=== PATIENT | female | born 1995 | race Caucasian/White ===

== ENCOUNTER 2018-03-21 16:38 | Outpatient (CLI) | payer OTHER | END 2018-03-21 18:03 | disposition home or self-care (01) | LOC: NST 16:38 | DX: Z34.03 Encounter for supervision of normal first pregnancy, third trimester (principal) ==

== ENCOUNTER 2018-04-02 01:31 | Outpatient (CLI) | payer OTHER ==
[2018-04-02] MEDS ORDERED: FOLIC ACID0.4 MG PO (01:48)
[2018-04-02] MEDS ORDERED: PRENATAL GUMMI1 EACH PO (01:49)
[2018-04-02] MEDS ORDERED: IRON325 MG PO (01:50)
== END 2018-04-02 09:43 | disposition home or self-care (01) ==
LOC: OBS/DEL 01:31
DX: O47.1 False labor at or after 37 completed weeks of gestation (principal); Z34.03 Encounter for supervision of normal first pregnancy, third trimester

== ENCOUNTER 2018-04-07 07:29 | Inpatient (IN) | payer OTHER ==
[~2018-04-07] VITALS: Ht 152.4 cm; Wt 124.0 kg
[~2018-04-07 07:29] MED LIST: FOLIC ACID0.4 MG PO; IRON325 MG PO; PRENATAL GUMMI1 EACH PO
== END 2018-04-09 12:37 | disposition home or self-care (01) | DRG 807 ==
LOC: OBS/DEL 07:29 → LDR 07:38 → OBS/DEL 07:38 → OB/GYN 16:20
PROC: 10E0XZZ Delivery of Products of Conception, External Approach (ICD-10-PCS; principal; 2018-04-07)
PROC: 0HQ9XZZ Repair Perineum Skin, External Approach (ICD-10-PCS; 2018-04-07)
PROC: 3E033VJ Introduction of Other Hormone into Peripheral Vein, Percutaneous Approach (ICD-10-PCS; 2018-04-07)
PROC: 4A1HXCZ Monitoring of Products of Conception, Cardiac Rate, External Approach (ICD-10-PCS; 2018-04-07)
DX: O70.0 First degree perineal laceration during delivery (principal); Z37.0 Single live birth; Z3A.39 39 weeks gestation of pregnancy

== ENCOUNTER 2023-05-09 11:05 | Outpatient (CLI) | payer OTHER | END 2023-05-09 11:07 | disposition home or self-care (01) | LOC: PRENATAL 11:05 | PROVIDERS: ATTEND Obstetrics & Gynecology Maternal & Fetal Medicine | DX: O35.3XX0 Maternal care for (suspected) damage to fetus from viral disease in mother, not applicable or unspecified (principal); O44.00 Complete placenta previa NOS or without hemorrhage, unspecified trimester; Z3A.22 22 weeks gestation of pregnancy ==

== ENCOUNTER 2023-05-17 18:41 | Outpatient (CLI) | payer OTHER ==
[2023-05-17 20:01] LABS: HEMATOCRIT 31.1 % (36.0-45.00); HEMOGLOBIN 10.8 g/dL (12.0-15.00); MEAN CELL VOLUME 91.4 fL (80.00-100.00); MEAN CORPUSCULAR HEMOGLOBIN 31.8 pg (27.00-32.0); MEAN CORPUSCULAR HGB CONC 34.9 g/dl (32.0-36.0); PLATELET COUNT 235 K/uL (150-450); RED CELL DISTRIBUTION WIDTH 12.9 % (11.5-14.5)
== END 2023-05-18 11:07 | disposition home or self-care (01) ==
LOC: OBS/DEL 18:41
PROVIDERS: ATTEND Obstetrics & Gynecology
DX: O26.892 Other specified pregnancy related conditions, second trimester (principal); R10.11 Right upper quadrant pain; Z3A.27 27 weeks gestation of pregnancy

== ENCOUNTER 2023-07-07 17:35 | Inpatient (IN) | payer OTHER ==
[~2023-07-07] VITALS: Ht 152.4 cm; Wt 54.9 kg
[2023-07-07 18:51] LABS: HEMATOCRIT 34.5 % (36.0-45.00); MEAN CELL VOLUME 91.4 fL (80.00-100.00); MEAN CORPUSCULAR HEMOGLOBIN 31.8 pg (27.00-32.0); MEAN CORPUSCULAR HGB CONC 34.9 g/dl (32.0-36.0); PLATELET COUNT 239 K/uL (150-450); RED BLOOD COUNT 3.78 M/uL (4.00-6.00)
[2023-07-07 18:58] LABS: PH,URINE 5.5 (5.0-8.0); URINE APPEARANCE Clear; URINE BILIRRUBIN Negative (NEGATIVE); URINE BLOOD Negative; URINE COLOR Yellow; URINE GLUCOSE Negative (NEGATIVE); URINE LEUKOCYTE Negative; URINE NITRATE Negative; URINE PROTEIN Negative (NEGATIVE)
[2023-07-07 19:02] LABS: URINE BACTERIA 103.2 uL (0.0-1933); URINE EPITHELIAL CELLS 9.7 uL (0.0-38.8); URINE WBC 8.9 uL (0.0-23.2)
[2023-07-07 19:05] LABS: URINE RBC 1.5 uL (0.0-20.8)
[2023-07-07 19:10] LABS: ALBUMIN 2.8 gm/dL (3.4-5.0); BILIRUBIN TOTAL 0.36 mg/dL (0.3-1.2); CALCIUM 8.7 mg/dL (8.5-10.1); CREATININE SERUM 0.51 mg/dL (0.55-1.02); GFR 144.65; GLOBULINA 3.7 G/DL (2.4-3.5); POTASSIUM 3.16 mEq/L (3.5-5.1); TOTAL PROTEIN 6.5 gm/dL (6.4-8.2)
== END 2023-07-08 12:08 | disposition home or self-care (01) | DRG 833 ==
LOC: OBS/DEL 17:35 → LDR 18:42
PROVIDERS: ADMIT Obstetrics & Gynecology; ATTEND Obstetrics & Gynecology
PROC: 4A1HXCZ Monitoring of Products of Conception, Cardiac Rate, External Approach (ICD-10-PCS; principal; 2023-07-07)
DX: O60.03 Preterm labor without delivery, third trimester (principal); Z3A.31 31 weeks gestation of pregnancy; Z20.822 Contact with and (suspected) exposure to COVID-19

== ENCOUNTER 2023-07-09 16:30 | Outpatient (CLI) | payer OTHER ==
[~2023-07-09] VITALS: Ht 152.4 cm; Wt 54.9 kg
== END 2023-07-10 14:30 | disposition home or self-care (01) ==
LOC: OBS/DEL 16:30
PROVIDERS: ATTEND Obstetrics & Gynecology
DX: O26.93 Pregnancy related conditions, unspecified, third trimester (principal); O60.03 Preterm labor without delivery, third trimester; Z3A.31 31 weeks gestation of pregnancy

== ENCOUNTER 2023-08-08 13:05 | Outpatient (CLI) | payer OTHER | END 2023-08-08 13:06 | disposition home or self-care (01) | LOC: PRENATAL 13:05 | PROVIDERS: ATTEND Obstetrics & Gynecology Maternal & Fetal Medicine | DX: O26.849 Uterine size-date discrepancy, unspecified trimester (principal); O36.8199 Decreased fetal movements, unspecified trimester, other fetus; Z3A.35 35 weeks gestation of pregnancy ==

== ENCOUNTER 2023-08-22 10:23 | Inpatient (IN) | payer OTHER ==
[~2023-08-22] VITALS: Ht 152.4 cm; Wt 59.4 kg
[2023-08-22] MEDS ORDERED: RINGERS SOLUTION,LACTATED 1,000 ML IV SCH ×2 (11:15)
[2023-08-22 15:20] LABS: PH,URINE 7.5 (5.0-8.0); URINE APPEARANCE Clear; URINE BILIRRUBIN Negative (NEGATIVE); URINE BLOOD Negative; URINE COLOR Yellow; URINE GLUCOSE Negative (NEGATIVE); URINE LEUKOCYTE Negative; URINE NITRATE Negative; URINE PROTEIN Negative (NEGATIVE)
[2023-08-22 15:23] LABS: URINE BACTERIA 1326.7 uL (0.0-1933); URINE EPITHELIAL CELLS 20.2 uL (0.0-38.8); URINE RBC 2.8 uL (0.0-20.8); URINE WBC 3.7 uL (0.0-23.2)
[2023-08-22 15:25] LABS: HEMATOCRIT 32.9 % (36.0-45.00); HEMOGLOBIN 11.6 g/dL (12.0-15.00); MEAN CELL VOLUME 91.2 fL (80.00-100.00); MEAN CORPUSCULAR HEMOGLOBIN 32.1 pg (27.00-32.0); MEAN CORPUSCULAR HGB CONC 35.2 g/dl (32.0-36.0); PLATELET COUNT 170 K/uL (150-450)
[2023-08-22 15:43] LABS: INR < 0.93; PARTIAL THROMBOPLASTIN TIME 28.2 SECONDS (22.0-34.0); PROTHROMBIN TIME 9.5 SECONDS (9.0-11.5)
[2023-08-22 15:51] LABS: ALBUMIN 2.3 gm/dL (3.4-5.0); BILIRUBIN TOTAL 0.36 mg/dL (0.3-1.2); CALCIUM 8.5 mg/dL (8.5-10.1); CREATININE SERUM 0.48 mg/dL (0.55-1.02); GLOBULINA 3.2 G/DL (2.4-3.5); POTASSIUM 3.5 mEq/L (3.5-5.1); TOTAL PROTEIN 5.5 gm/dL (6.4-8.2)
[2023-08-22] MEDS ORDERED: ACETAMINOPHEN 500 MG GEL..CAP PO ONE ×2 (21:19→21:30)
[2023-08-23] MEDS ORDERED: MISOPROSTOL 25 MCG TABLET ONE (18:03)
[2023-08-23] MEDS ORDERED: MISOPROSTOL 25 MCG TABLET VAG ONE (18:15)
[2023-08-23] MEDS ORDERED: hydrOXYzine PAMOATE 50 MG CAPSULE PO PRN (18:30)
[2023-08-24] MEDS ORDERED: OXYTOCIN 500 ML IV SCH (07:45)
[2023-08-24] MEDS ORDERED: PROMETHAZINE HCL 25 MG/ML AMPUL ONE (08:22)
[2023-08-24] MEDS ORDERED: PROMETHAZINE HCL 25 MG/ML AMPUL IV ONE (08:45)
[2023-08-24] MEDS ORDERED: MEPERIDINE HCL/PF 25 MG/ML VIAL IV ONE (08:45)
[2023-08-24] MEDS ORDERED: ERYTHROMYCIN BASE 1 GM TUBE OP ONE ×2 (08:53→16:00)
[2023-08-24] MEDS ORDERED: CHLORHEXIDINE GLUCONATE 120 ML BOTTLE TOP ONE ×2 (08:53→16:00)
[2023-08-24] MEDS ORDERED: OXYTOCIN 20 UNITS/1000ML RL PIGGYBAG IV ONE (08:53)
[2023-08-24] MEDS ORDERED: IBUprofen 400 MG TABLET PO PRN (16:00)
[2023-08-24] MEDS ORDERED: OXYTOCIN 10 UNITS/ML VIAL IV ONE (16:00)
[2023-08-24] MEDS ORDERED: LIDOCAINE HCL 1% 200MG/20ML VIAL IJ ONE (16:00)
[2023-08-25] MEDS ORDERED: BENZOCAINE/MENTHOL 90 ML BOTTLE TOP SCH (17:00)
== END 2023-08-26 13:23 | disposition home or self-care (01) | DRG 807 ==
LOC: OBS/DEL 10:23 → LDR 12:55 → OBS/DEL 12:55 → LDR 08-23 17:27 → OB/GYN 08-24 14:21
PROVIDERS: ADMIT Student in an Organized Health Care Education/Training Program; ATTEND Student in an Organized Health Care Education/Training Program
PROC: BY4FZZZ Ultrasonography of Third Trimester, Single Fetus (ICD-10-PCS; 2023-08-22)
PROC: 4A1HXCZ Monitoring of Products of Conception, Cardiac Rate, External Approach (ICD-10-PCS; 2023-08-22)
PROC: 3E033VJ Introduction of Other Hormone into Peripheral Vein, Percutaneous Approach (ICD-10-PCS; 2023-08-23)
PROC: 3E0P7VZ Introduction of Hormone into Female Reproductive, Via Natural or Artificial Opening (ICD-10-PCS; 2023-08-23)
PROC: 10E0XZZ Delivery of Products of Conception, External Approach (ICD-10-PCS; principal; 2023-08-24)
PROC: 0HQ9XZZ Repair Perineum Skin, External Approach (ICD-10-PCS; 2023-08-24)
DX: O70.1 Second degree perineal laceration during delivery (principal); Z37.0 Single live birth; O26.843 Uterine size-date discrepancy, third trimester; O36.8130 Decreased fetal movements, third trimester, not applicable or unspecified; Z3A.37 37 weeks gestation of pregnancy; Z20.822 Contact with and (suspected) exposure to COVID-19